=== PATIENT | male | born 1960 | race Caucasian/White ===

== ENCOUNTER 2019-10-20 16:13 | Outpatient (CLI) | payer BC ==
--- NOTE | 2019-10-20 18:12 | XRAY Report ---
PROCEDURE: Elbow 2 View RT INDICATIONS: ELBOW JOINT PAIN, RIGHT TECHNIQUE: 2 views of the elbow were acquired. COMPARISON: None FINDINGS: Bones: No fractures or dislocations. There is a moderate-sized osteophyte at the olecranon process. No other suspicious bony lesions. Soft tissues: No elbow joint effusion. No suspicious soft tissue calcifications. IMPRESSION: Moderate sized olecranon osteophyte which may be the etiology of the patient's symptoms. Reviewed by: Verito Pond MD on 10/20/2019 6:11 PM PDT Approved by: Verito Pond MD on 10/20/2019 6:11 PM PDT Station ID: [id number]
== END 2019-10-20 16:14 | disposition home or self-care (01) ==
LOC: DI 16:13
PROVIDERS: ATTEND Family Medicine
DX: M25.721 Osteophyte, right elbow (principal)

== ENCOUNTER 2020-02-13 15:44 | Outpatient (CLI) | payer BC ==
[2020-02-13 16:39] VITALS: BP 138/95
--- NOTE | 2020-02-13 16:39 | SLEEP CARE CONSULTATION ---
Information from patient questionnaire entered by Huang Arellano. I have reviewed and concur with the information entered by Huang Arellano. This document represents the service I personally performed and the decisions made by me, Ying Johnson ARNP. History of Present Illness Service Date and Time: 02/13/2020 1544 Reason for Visit: New patient Chief Complaint: reports: Unrefreshed sleep, Snoring, Observed pauses in breathing, Fatigue, Frequent awakenings at night, Other (Yes). denies: Insomnia, Excessive daytime sleepiness Date of Onset: 10 years Usual bedtime: 930-1030 Time it takes to fall asleep: 10-15 minutes Snores at night: Yes Observed to quit breathing while asleep: Yes Sleeps alone due to snoring: No Number of times waking at night: 5 - that I know Reasons for waking at night: reports: Choking, Snoring, Other (Adjust pillow). denies: Gasping for air Toss, Turn, or Twitch while sleeping: Yes Recalls having dreams: No Usually gets out of bed at: 0430 Feels refreshed in the morning: No Morning headache: No Sleepy or fatigued during the day: Yes Ever fallen asleep while driving: No (no drowsy driving) Takes day naps: No Dreams during day naps: No Prior sleep studies: No Additional HPI information: I had the pleasure of seeing CLAUDIO ARELLANO today regarding the possibility of him having a sleep disorder. His current complaints are a 10 year history of unrefreshed sleep, snoring, observed pauses in breathing, fatigue and frequent night awakenings. He has a history of hypertension but does not take blood pressure medication because it made him dizzy and did not reduce his blood pressure. He has had times when he has woke up choking or snoring. He is usually very restless during the night and does not know how many times he wakes up but may average about 5 times. He is feeling well today, no complaints of chest pain, shortness of breath or palpitations. - Parasomnia Symptoms Ever been unable to move upon waking from sleep: No Walks in sleep: No Talks in sleep: Yes Ever acted out dreams in sleep: No Ever felt weak in the knees when startled or emotional: No Bothered by creepy, crawly, restless sensations in legs: Yes (usually in the evening or is sits in one place too long) Problems with memory or concentration: No Subjective Initial [place] Sleepiness Scale score: 7 (in 2020) Past Medical History Past Medical History: reports: Hypertension, Arthritis, Gout. denies: Congestive Heart Failure, Diabetes, Coronary Heart Disease, Arrythmia, Hypothyroidism, Anemia, Anxiety, Impotence, Depression, Mood disorder, GERD, Attention deficit Social History The patient's occupation is a [employer]. Patient is and lives in [place]. Have you smoked in the past 12 months: No Alcohol use: Yes Alcohol amount and frequency: 6 a year Caffeine use: Yes Caffeine amount and frequency: Two cans of soda and 2 cups of coffee a day Family History Family history of sleep disordered breathing: No Allergies and Home Medications Drug allergies reviewed: Yes (NKDA) Home medication list reviewed: Yes Allergy and home medication list: Ibuprofen, prn Review of Systems Weight gain over past 5 years: 30 Weight loss over past 5 years: 5 Cardiovascular: reports: high blood pressure, leg or foot swelling. denies: palpitations, chest pain, irregular heart rate or pulse Respiratory: reports: shortness of breath Gastrointestinal: denies: heartburn, difficulty swallowing Urinary: denies: impotence Neurological: denies: headaches, seizure, head trauma, speech dysfunction, gait or balance problems Psychiatric: denies: Attention Deficit Hyperactivity, anxiety, depression, mood disorder Ear/Nose/Throat: reports: nasal congestion (in winter time in the mornings, sinuses full), sinus problems, tonsillectomy, wisdom teeth removed. denies: nose bleeds, dry mouth/throat, injury to nose Endocrine: denies: thyroid disease Musculoskeletal: reports: neck pain. denies: muscle pain or cramping, mobility problems Immunologic: denies: allergies to food or environment Physical Exam Blood Pressure: 138/95 Cuff size: wrist Heart Rate: 104 O2 Saturation: 97 Height: 5 ft 9 in Weight: 272 lb Body Mass Index: 40.1 BMI Classification: Morbidly Obese HEENT: No craniofacial malformation Nostrils: patent to airflow Turbinates: swollen Septum: deviated right Mouth and throat: normal Soft palate: normal Hard palate: normal Uvula: normal Uvula visualization: 100% Mallampati Class I Tongue: normal in size Tonsils: absent bilaterally Chin and jaw: normal size and position Neck: normal w/o lymphadenopathy or thyromegaly Heart: regular rate and rhythm Lungs: clear bilaterally Impression and Plan 1. Suspected Obstructive Sleep Apnea-Hypopnea Syndrome, as suggested by a history of loud and irregular snoring, observed cessation of breath while asleep, gasping or choking in sleep, frequent awakening during the night, unrefreshed sleep, and excessive daytime sleepiness. I reviewed with patient that a narrow oropharynx and obesity are common predisposing factors for obstructive sleep apnea-hypopnea syndrome. I recommend proceeding to polysomnography to confirm the diagnosis and to assess severity. If the patient has significant sleep disordered breathing, a manual CPAP titration study will also be performed to find the optimal treatment pressure. I informed the patient of what the sleep studies involve and after some discussion, obtained agreement to proceed. The pathophysiology of obstructive sleep apnea-hypopnea syndrome was discussed with the patient and health risks of cardiovascular and cerebrovascular disease if not treated. AAS brochure for obstructive sleep apnea-hypopnea syndrome given and reviewed. Risks of drowsy driving discussed in detail and patient advised to avoid long distance driving and to machine puller over at the first sign of drowsiness. Patient agreed to plan. * Schedule polysomnography +- manual CPAP titration study. * Avoid long distance driving or driving when feeling sleepy. * Avoid alcohol, sedative and muscle relaxant around bedtime. * Attempt to lose weight. * Review instructions provided by trained office staff on how to prepare for the sleep study. * Return for follow-up after sleep study completed. Counseling Topics: Weight loss health impact Visit Type: In Office Time Spent with Patient (minutes): 32 Provider Statement: I spent 100% of the Face to Face Visit with the patient with greater than 50% spent counseling the patient and coordination of care.
== END 2020-02-13 15:45 | disposition home or self-care (01) ==
LOC: SC 15:44
PROVIDERS: ATTEND Nurse Practitioner Family
DX: G47.10 Hypersomnia, unspecified (principal); R06.81 Apnea, not elsewhere classified; R06.83 Snoring; G47.8 Other sleep disorders; E66.01 Morbid (severe) obesity due to excess calories; Z68.41 Body mass index [BMI] 40.0-44.9, adult
CPT/HCPCS: 99203; 99212

== ENCOUNTER 2020-03-17 19:30 | Outpatient (CLI) | payer BC | END 2020-03-17 23:59 | disposition home or self-care (01) | LOC: SC 19:30 | PROVIDERS: ATTEND Nurse Practitioner Family | DX: G47.33 Obstructive sleep apnea (adult) (pediatric) (principal); R09.02 Hypoxemia; E66.3 Overweight; Z68.41 Body mass index [BMI] 40.0-44.9, adult | CPT/HCPCS: 95806 ==

== ENCOUNTER 2020-03-22 15:51 | Outpatient (CLI) | payer BC ==
--- NOTE | 2020-03-22 16:15 | SLEEP CARE CONSULTATION ---
Information from patient questionnaire entered by Huang Arellano. I have reviewed and concur with the information entered by Huang Arellano. This document represents the service I personally performed and the decisions made by me, Ying Johnson ARNP. History of Present Illness Service Date and Time: 03/22/2020 155 Initial [place] Sleepiness Scale score: 7 (in 2020) Current [place] Sleepiness Scale score: 1 Additional HPI information: CLAUDIO ARELLANO returns for follow up and results of the recently performed home sleep study. I explained the pathophysiology behind obstructive sleep apnea. We then spent quite a bit of time discussing different treatment options. For mild obstructive sleep apnea, surgery and oral appliance are alternatives to nasal CPAP therapy but in moderate or severe cases, nasal CPAP is the most effective and reliable treatment. After some discussion, the patient opted to go with the nasal CPAP therapy. Nasal autoCPAP set at 4-15 cmH20 will be ordered with rationale explained. A manual titration study will be ordered if unable to find optimal pressure with office adjustments. I explained how CPAP machine works with sample devices [employer] and [id number] and what to expect when using the machine. Using CPAP every night in order to get used to it was emphasized. Patient advised to put CPAP mask on before getting into bed so as not to fall asleep without CPAP. To assist acclimation to CPAP use, it could also be used for a short time during day while reading or watching TV. The patient was instructed to call the CPAP supplier to discuss any mechanical problem that may occur. If the mask given is uncomfortable or is difficult to keep on through the night even with adjustment, contact the CPAP supplier as many will replace with another mask style if notified before 30 days. If snoring or perceives is not getting enough air or too much air from the machine, notify this office. AASM patient education PAP tips reviewed and given to patient. Patient counseled not drink alcohol less than 4 hours before bedtime as it can increase snoring and apnea. Patient was cautioned about risks of drowsy driving until sleepiness symptoms resolve. Sleep Study - Results Type of Sleep Study: Home sleep study Prior sleep studies: No Polysomnography/Home Sleep Study results: Physician Impression: The quality of the study is good. The length of the study is adequate (> 240 minutes). Please also see the tabulated and graphic data. 1. Obstructive Sleep Apnea-Hypopnea (ICD-10 G47.33), mild, with an AHI of 6.0/hr and matt SaO2 of 75%. During the study, the patient had 7 apneas (7 obstructive, 0 central, 0 mixed) and 27 hypopneas. The longest episode lasted 122.0 seconds. The patient did not sleep supine during this study (supine AHI was 0.0 and non-supine, 6.04). 2. Hypoxemia (ICD-10 R09.02), moderate, with the lowest oxygen saturation of 75 % and 65.0 minutes with SaO2 under 90%. Baseline oxygen saturation was normal (Average oxygen saturation was 91%). Allergies and Home Medications Drug allergies reviewed: Yes (NKDA) Home medication list reviewed: Yes (no changes) Review of Systems Review of systems same as previous: Yes (no changes) Physical Exam Heart Rate: 85 O2 Saturation: 96 Height: 5 ft 9 in Weight: 268 lb Body Mass Index: 39.5 BMI Classification: Obese Impression and Plan 1. Obstructive Sleep Apnea-Hypopnea Syndrome, mild, with lowest oxygen saturation of 75%. Obviously this is the cause of the patients symptoms of unrefreshed sleep, and excessive daytime sleepiness. Positive pressure therapy could benefit his hypertension. As mentioned above, the patient will be started on nasal autoCPAP therapy with pressure set at 4-15 cmH2O. A manual titration study will be completed if unable to find optimal treatment pressure with office adjustments. Compliance guidelines also reviewed. A copy of compliance guidelines will be given for reference at check out. * Nasal auto CPAP therapy, pressure at 4-15 cm H2O. * Attempt to lose weight. * Avoid alcohol consumption near bedtime. * Avoid supine sleep until using CPAP. * The patient is again cautioned about driving until sleepiness completely resolves. * Return one month after CPAP obtained. I will assess response to therapy and compliance at that time. Counseling Topics: Weight loss health impact Visit Type: In Office Time Spent with Patient (minutes): 15 Provider Statement: I spent 100% of the Face to Face Visit with the patient with greater than 50% spent counseling the patient and coordination of care.
== END 2020-03-22 15:52 | disposition home or self-care (01) ==
LOC: SC 15:51
PROVIDERS: ATTEND Nurse Practitioner Family
DX: G47.33 Obstructive sleep apnea (adult) (pediatric) (principal); E66.9 Obesity, unspecified; Z68.39 Body mass index [BMI] 39.0-39.9, adult
CPT/HCPCS: 99212; 99213

== ENCOUNTER 2020-05-07 15:47 | Outpatient (CLI) | payer BC ==
--- NOTE | 2020-05-07 16:37 | SLEEP CARE CONSULTATION ---
Information from patient questionnaire entered by Huang Arellano. I have reviewed and concur with the information entered by Huang Arellano. This document represents the service I personally performed and the decisions made by , Ying Johnson ARNP. History of Present Illness Service Date and Time: 05/07/2020 1547 Previous diagnosis: Mild, Obstructive Sleep Apnea-Hypopnea Syndrome AHI: 6.0 Reason for follow up: first compliance Equipment type: CPAP Equipment obtained from: [employer] (got initial supplies, another shipment is on its way) Mask style: Nasal Backup mask available: No (will keep old mask when it is replaced) Last cushion change: 1 month Prior sleep studies: No Year and Where: 2019 [facility] Type of Sleep Study: Home sleep study HPI additional information: CLAUDIO ARELLANO was diagnosed to have mild, AHI 6.0, obstructive sleep apnea- hypopnea syndrome and returned today for CPAP therapy first compliance follow- up. CPAP Compliance Data - Data Reviewed with Patient Average duration of nightly device use: 6 h 56 min Compliance rate %: 97 Current pressure setting (cmH2O): 4-15 (median 6.6, average 9.6, maximum 10.8) Average residual AHI: 0.5 Central apnea: 0.1 Obstructive apnea: 0.1 Subjective Missed days of use due to: reports: other (Power outage) Patient concerns: reports: other (Gusman on face). denies: aerophagia, mask discomfort, air blowing in eyes, mask leak noise, condensation in mask/hose, nasal congestion, dry mouth, nose, throat, epistaxis Observed to snore while using device: No Current pressure setting perceived as: comfortable On therapy, patient: reports: sleeping better, awakening more refreshed, being more awake and alert during the day, more rested overall. denies: drowsiness while driving Initial [place] Sleepiness Scale score: 7 (in 2020) Current [place] Sleepiness Scale score: 1 Allergies and Home Medications Drug allergies reviewed: Yes (NKDA) Home medication list reviewed: Yes (no changes) Review of Systems Review of systems same as previous: Yes (no changes) Physical Exam Heart Rate: 89 O2 Saturation: 95 Height: 5 ft 9 in Weight: 272 lb Body Mass Index: 40.1 BMI Classification: Morbidly Obese Impression and Plan 1. Obstructive Sleep Apnea-Hypopnea Syndrome, mild, with good treatment compliance and excellent apnea control. On CPAP therapy, the patient has better sleep quality and is more rested overall. He is really liking his machine and the way he feels the next day. His only concern is he has some gusman on face where the headgear goes across his cheeks. He was advised to get some liners/pads to reduce the appearance of lines on his face. He may obtain through his DME or online. He voiced understanding. He is using a median pressure of 6.6 cmH2O, average of 9.6 cmH2O and maximum of 10.8 cmH2O and so I will adjust his pressure to 6-10 cmH2O. He is getting excellent control of apnea with these pressures. Patient's apnea severity and rationale for treatment to reduce apnea, improve sleep quality and reduce cardiovascular and cerebrovascular events was reviewed. I also reviewed the benefit of consistent device use of CPAP for hypertension. * Change auto CPAP pressure to 6-10 cmH2O * Notify me if snoring with mask or feeling that the pressure is too much or too little * Attempt to lose weight * Call this office if any problems using CPAP * Return for follow up in 1-2 months, or sooner if concerns arise Counseling Topics: Spare mask, Weight loss health impact Visit Type: In Office Time Spent with Patient (minutes): 20 Provider Statement: I spent 100% of the Face to Face Visit with the patient with greater than 50% spent counseling the patient and coordination of care.
== END 2020-05-07 15:48 | disposition home or self-care (01) ==
LOC: SC 15:47
PROVIDERS: ATTEND Nurse Practitioner Family
DX: G47.33 Obstructive sleep apnea (adult) (pediatric) (principal); E66.01 Morbid (severe) obesity due to excess calories; Z68.41 Body mass index [BMI] 40.0-44.9, adult
CPT/HCPCS: 99212; 99213

== ENCOUNTER 2020-07-04 15:47 | Outpatient (CLI) | payer BC ==
--- NOTE | 2020-07-04 16:16 | SLEEP CARE CONSULTATION ---
Information from patient questionnaire entered by Huang Arellano. I have reviewed and concur with the information entered by Huang Arellano. This document represents the service I personally performed and the decisions made by , Ying Johnson ARNP. History of Present Illness Service Date and Time: 07/04/2020 1547 Previous diagnosis: Mild, Obstructive Sleep Apnea-Hypopnea Syndrome AHI: 6.0 Reason for follow up: other (2-month followup - pressure change) Equipment type: CPAP Equipment obtained from: [employer] (getting supplies as needed) Mask style: Nasal Backup mask available: Yes (old mask) Last cushion change: last week Prior sleep studies: No Year and Where: 2019 [facility] Type of Sleep Study: Home sleep study HPI additional information: CLAUDIO ARELLANO was diagnosed to have mild, AHI 6.0, obstructive sleep apnea- hypopnea syndrome and returned today for CPAP therapy 2 month pressure change follow-up. CPAP Compliance Data - Data Reviewed with Patient Average duration of nightly device use: 6 h 30 min Compliance rate %: 97 Current pressure setting (cmH2O): 6-10 Average residual AHI: 0.3 Central apnea: 0.1 Obstructive apnea: 0.1 Subjective Patient concerns: denies: aerophagia, mask discomfort, air blowing in eyes, mask leak noise, condensation in mask/hose, nasal congestion, dry mouth, nose, throat, epistaxis, other Observed to snore while using device: No Current pressure setting perceived as: comfortable On therapy, patient: reports: sleeping better, awakening more refreshed, being more awake and alert during the day, more rested overall. denies: drowsiness while driving Initial [place] Sleepiness Scale score: 7 (in 2020) Current [place] Sleepiness Scale score: 0 Allergies and Home Medications Home medication list reviewed: Yes (no new meds) Review of Systems Review of systems same as previous: Yes (no changes) Physical Exam Heart Rate: 87 O2 Saturation: 96 Height: 5 ft 9 in Weight: 271 lb Body Mass Index: 40.0 BMI Classification: Morbidly Obese Impression and Plan 1. Obstructive Sleep Apnea-Hypopnea Syndrome, mild, with good treatment compliance and good apnea control. On CPAP therapy, the patient has better sleep quality and is more rested overall. He has no issues or concerns with mask use and loves using the CPAP machine. He has ordered a treadmill to increase his exercise activity to help him to lose weight and improve his overall health. He is feeling very comfortable and I will have him follow up in about 6 months. Patient's apnea severity and rationale for treatment to reduce apnea, improve sleep quality and reduce cardiovascular and cerebrovascular events was reviewed. I also reviewed the benefit of consistent device use of CPAP for hypertension. * Continue auto CPAP pressure at 6-10 cmH2O * Notify me if snoring with mask or feeling that the pressure is too much or too little * Attempt to lose weight * Call this office if any problems using CPAP * Return for follow up in 6 months, or sooner if concerns arise Counseling Topics: Spare mask, Weight loss health impact, Activity level Visit Type: In Office Time Spent with Patient (minutes): 11 Provider Statement: I spent 100% of the Face to Face Visit with the patient with greater than 50% spent counseling the patient and coordination of care.
== END 2020-07-04 15:48 | disposition home or self-care (01) ==
LOC: SC 15:47
PROVIDERS: ATTEND Nurse Practitioner Family
DX: G47.33 Obstructive sleep apnea (adult) (pediatric) (principal); E66.01 Morbid (severe) obesity due to excess calories; Z68.41 Body mass index [BMI] 40.0-44.9, adult
CPT/HCPCS: 99212

== ENCOUNTER 2021-02-03 08:00 | Outpatient (CLI) | payer BC | END 2021-02-03 23:59 | disposition home or self-care (01) | LOC: LAB.N 08:00 | PROVIDERS: ATTEND Physician Assistant Medical | DX: L02.91 Cutaneous abscess, unspecified (principal) | CPT/HCPCS: 87070; 87181; 87205 ==

== ENCOUNTER 2022-12-19 09:20 | Outpatient (CLI) | payer BC ==
[2022-12-19 19:15] LABS: BASOPHILS # (AUTO) 0.1 10^3/uL (0.0-0.1); EOSINOPHILS # (AUTO) 0.1 10^3/uL (0.0-0.7); EOSINOPHILS % (AUTO) 1.5 %; HCT - HEMATOCRIT 50.6 % (42.0-52.0); HGB - HEMOGLOBIN 16.3 g/dL (14.0-18.0); LYMPHOCYTES # (AUTO) 0.8 10^3/uL (1.5-3.5); LYMPHOCYTES % (AUTO) 12.9 %; MEAN CORPUSCULAR HEMOGLOBIN 30.6 pg (27.0-31.0); MEAN CORPUSCULAR HGB CONC 32.2 g/dL (32.0-36.0); MEAN CORPUSCULAR VOLUME 94.9 fL (80.0-94.0); MEAN PLATELET VOLUME 11.8 fL (7.4-11.4); MONOCYTES # (AUTO) 0.5 10^3/uL (0.0-1.0); MONOCYTES % (AUTO) 8.5 %; NEUTROPHILS # (AUTO) 4.5 10^3/uL (1.5-6.6); NEUTROPHILS % (AUTO) 75.8 %; PLT - PLATELET COUNT 176 10^3/uL (130-450); RED BLOOD COUNT 5.33 10^6/uL (4.70-6.10); RED CELL DISTRIBUTION WIDTH 13.3 % (12.0-15.0); WHITE BLOOD COUNT 5.9 x10^3/uL (4.8-10.8)
[2022-12-19 19:41] LABS: ALBUMIN 4.5 g/dL (3.2-5.5); ALBUMIN/GLOBULIN RATIO 1.9 (1.0-2.2); ALKALINE PHOSPHATASE 47 IU/L (42-121); ALT ALANINE AMINOTRANSFERASE 21 IU/L (10-60); AST ASPARTATE AMINOTRANSFERASE 21 IU/L (10-42); BILIRUBIN,TOTAL 0.5 mg/dL (0.2-1.0); BUN - BLOOD UREA NITROGEN 16 mg/dL (6-20); CALCIUM 9.9 mg/dL (8.5-10.3); CARBON DIOXIDE - CO2 29 mmol/L (21-32); CHLORIDE 106 mmol/L (101-111); CHOL/HDL RATIO 4.7 (<5.0); CHOLESTEROL 203 mg/dL; CREATININE 1.1 mg/dL (0.6-1.3); GFR - MDRD 69 (>89); GLUCOSE 109 mg/dL (74-104); HDL CHOLESTEROL 43 mg/dL; LDL CHOLESTEROL,CALCULATED 130 mg/dL; POTASSIUM 4.5 mmol/L (3.5-4.5); SODIUM 140 mmol/L (135-145); TOTAL PROTEIN 6.9 g/dL (6.4-8.9); TRIGLYCERIDES 148 mg/dL (48-352); VLDL CHOLESTEROL 30 mg/dL
[2022-12-19 22:04] LABS: CHLAMYDIA TRACHOMATIS DNA NEGATIVE (NEGATIVE); NEISSERIA GONORRHOEAE DNA NEGATIVE (NEGATIVE); TRICHOMONAS VAGINALIS DNA NEGATIVE (NEGATIVE)
[2022-12-22 01:08] LABS: HIV SCREEN 4TH GENERATION Non Reactive (Non Reactive)
[2022-12-22 08:10] LABS: RPR Non Reactive (Non Reactive)
== END 2022-12-19 09:21 | disposition home or self-care (01) ==
LOC: LAB.N 09:20
PROVIDERS: ATTEND Physician Assistant Medical
DX: Z00.00 Encounter for general adult medical examination without abnormal findings (principal); E78.5 Hyperlipidemia, unspecified; Z20.2 Contact with and (suspected) exposure to infections with a predominantly sexual mode of transmission; Z12.11 Encounter for screening for malignant neoplasm of colon; G47.33 Obstructive sleep apnea (adult) (pediatric)
CPT/HCPCS: 36415; 80053; 80061; 83721; 84153; 84403; 85025; 86592; 86695; 86696; 87389; 87491; 87591; 87661

== ENCOUNTER 2023-04-07 09:12 | Outpatient (CLI) | payer BC ==
[2023-04-07 12:13] LABS: CALCIUM 9.7 mg/dL (8.5-10.3); CREATININE 1.2 mg/dL (0.6-1.3); POTASSIUM 4.4 mmol/L (3.5-4.5)
== END 2023-04-07 09:13 | disposition home or self-care (01) ==
LOC: LAB.N 09:12
PROVIDERS: ATTEND Physician Assistant Medical
DX: E29.1 Testicular hypofunction (principal); R73.9 Hyperglycemia, unspecified
CPT/HCPCS: 36415; 80048; 84403

== ENCOUNTER 2023-05-01 09:33 | Outpatient (CLI) | payer BC ==
[2023-05-01 20:06] LABS: PROLACTIN 13.75 ng/mL
== END 2023-05-01 09:34 | disposition home or self-care (01) ==
LOC: LAB.N 09:33
PROVIDERS: ATTEND Urology
DX: E29.1 Testicular hypofunction (principal)
CPT/HCPCS: 36415; 82670; 83002; 84146; 84403

== ENCOUNTER 2023-11-30 13:57 | Outpatient (CLI) | payer BC ==
[2023-11-30 18:40] LABS: BASOPHILS # (AUTO) 0.1 10^3/uL (0.0-0.1); BASOPHILS % (AUTO) 0.7 %; EOSINOPHILS # (AUTO) 0.1 10^3/uL (0.0-0.7); EOSINOPHILS % (AUTO) 1.7 %; HCT - HEMATOCRIT 47.2 % (42.0-52.0); HGB - HEMOGLOBIN 15.7 g/dL (14.0-18.0); LYMPHOCYTES # (AUTO) 0.9 10^3/uL (1.5-3.5); LYMPHOCYTES % (AUTO) 12.3 %; MEAN CORPUSCULAR HEMOGLOBIN 31.3 pg (27.0-31.0); MEAN CORPUSCULAR HGB CONC 33.3 g/dL (32.0-36.0); MEAN CORPUSCULAR VOLUME 94.2 fL (80.0-94.0); MONOCYTES # (AUTO) 0.6 10^3/uL (0.0-1.0); MONOCYTES % (AUTO) 8.6 %; NEUTROPHILS # (AUTO) 5.3 10^3/uL (1.5-6.6); NEUTROPHILS % (AUTO) 76.3 %; PLT - PLATELET COUNT 165 10^3/uL (130-450); RED BLOOD COUNT 5.01 10^6/uL (4.70-6.10); RED CELL DISTRIBUTION WIDTH 12.8 % (12.0-15.0)
[2023-11-30 19:14] LABS: THYROID STIMULATING HORMONE 1.09 uIU/mL (0.34-5.60)
[2023-11-30 19:18] LABS: ALBUMIN 4.2 g/dL (3.2-5.5); ALBUMIN/GLOBULIN RATIO 1.6 (1.0-2.2); BILIRUBIN,TOTAL 0.4 mg/dL (0.2-1.0); CALCIUM 9.9 mg/dL (8.5-10.3); CREATININE 1.2 mg/dL (0.6-1.3); POTASSIUM 4.1 mmol/L (3.5-4.5); TOTAL PROTEIN 6.8 g/dL (6.4-8.9)
[2023-11-30 19:47] LABS: CHOL/HDL RATIO 4.1 (<5.0); CHOLESTEROL 171 mg/dL; HDL CHOLESTEROL 42 mg/dL; LDL CHOLESTEROL,CALCULATED 84 mg/dL; TRIGLYCERIDES 227 mg/dL; VLDL CHOLESTEROL 45 mg/dL
[2023-11-30 21:02] LABS: ESTIMATED AVERAGE GLUCOSE 105 mg/dL (70-100); HEMOGLOBIN A1c% 5.3 % (4.27-6.07)
== END 2023-11-30 13:58 | disposition home or self-care (01) ==
LOC: LAB.N 13:57
PROVIDERS: ATTEND Urology
DX: Z00.00 Encounter for general adult medical examination without abnormal findings (principal); E29.1 Testicular hypofunction; R73.9 Hyperglycemia, unspecified; Z12.5 Encounter for screening for malignant neoplasm of prostate
CPT/HCPCS: 36415; 80053; 80061; 82670; 83036; 83721; 84153; 84403; 84443; 85025